=== PATIENT | female | born 2000 | race Two or more races ===

== ENCOUNTER 2025-02-01 13:05 | Outpatient (AMB) | payer MEDICAID, SELFPAY ==
--- NOTE | 2025-02-01 13:22 | OBCLNT_ITS ---
Vital Signs 02/01/25 13:27 Weight 68.096 kg Weight Measurement Method Standing Scale BP 130/81 Blood Pressure Source Automatic Cuff Blood Pressure Location Left Upper Arm Position Sitting Respiration 16 Pulse 90 Pulse Source Monitor Temp 97.2 F Temp Source Oral Pulse Oximetry (%) 98 Oxygen Delivery Method Room Air Allergies/Home Meds Allergies & Medications Allergies No Known Allergies Allergy (Verified 02/01/25 13:28) Medication Reconciliation vitamin-ferrous fumarate 28 mg iron-folic acid 800 mcg tablet ( Vitamins with Minerals) 1 tab PO QDAY 10/01/21 [History Confirmed 02/01/25] ursodiol 300 mg capsule 300 mg PO BID 10/01/21 [History Confirmed 02/01/25] vits no.130-ferrous fum 27 mg iron-folic acid 800 mcg tablet ( Vitamin) 1 tab PO QDAY pregancy #60 tabs 02/01/25 [Rx] Intake Visit Data Collection New Patient or Established: New Patient (never been to [facility]) Reason for Visit:: OBI Seen by Clinical Staff ONLY (RN/MA): No Nuclear Control Room Operator Required: No Do You Feel Safe at Home: Yes Authorities Contacted: N/A PCP or OBGYN visit in last 3 months: Yes Hx Now: Yes Are you currently on any form of Control: No Last menstrual period: 10/04/24 Pain Present Currently: No Pain Scale Used: Jara-Nunn/Numerical Pain scale:: 0 Smoking Status Smoking Status: Never smoker Questionnaires Covid-19 Vaccine Questionnaire Has patient been vacinated for Covid-19 Have you been vacinated for Covid-19: Yes PHQ-9 PHQ-2 Over the last 2 weeks, how often have you been bothered by any of the following problems? 1. Little interest or pleasure in doing things: not at all 2. Feeling down, depressed, or hopeless: not at all Total score: 0 PHQ-9 3. Trouble falling or staying asleep, or sleeping too much: Not at all 4. Feeling tired or having little energy: Not at all 5. Poor appetite or overeating: Not at all 6. Feeling bad about yourself - or that you are a failure or have let yourself or your family down: Not at all 7. Trouble concentrating on things, such as reading the newspaper or watching television: Not at all 8. Moving or speaking so slowly that other people could have noticed? - Or the opposite - being so fidgety or restless that you have been moving around a lot more than usual: not at all 9. Thoughts that you would be better off or of hurting yourself in some way: Not at all Total score: 0 If you checked off any problems, how difficult have these problems made it for you to do your work, take care of things at home, or get along with other people?: not difficult at all Source: Developed by Drs. Sourav Haynes, Maria Guadalupe Taylor, Kwaku Toscano and colleagues, with an educational vashti from [employer]. Depression screen completed yes Social History Living Situation History Marital Status: Lives With: Family Housing: TRAILER Tobacco History Smoking Status: Never smoker Second Hand Smoke Exposure: No Alcohol History Alcohol Intake: Never Domestic Abuse History Do You Feel Safe at Home: Yes History of Present Illness HPI Narrative 24-year-old 2 para 1 for OBI. Patient's last period October 04, 2024. This gives EDC July 11, 2025. Patient has a little girl that weighed 6 pounds 5 it was a vaginal and uncomplicated the first . Denies social habits. Denies surgery. Denies chronic illness. Patient has no allergies. Sh e reports light movement. And she denies leaking, bleeding, cramps. No complaints so far with this . GASOLINE ATTENDANT: Past Medical History Past Medical History: No Hx Neurological Disorders, No Hx Cardiac Disorders, No Hx Cancer, No Hx Blood Disorders, No Hx Gastrointestinal Disorders, No Hx Renal Disease, No Hx Diabetes Mellitus Type 1 and No Hx Diabetes Mellitus Type 2 OB Initial Visit OB Flowsheet OB Flowsheet Initial Weight: Not Recorded Date -?-?-?-?-?-?-?-?-?-?-?-?- EGA Weight BP Alb Glu CTX Pres Fundal ht FHR Mov Dilation Station Effacement Hx Notes Visit Note 02/01/25 -?-?-?-?-?-?-?-?-?-?-?-?- 17w 1d 68.096 kg 130/81 absent unknown 17 145 active This is a 24-year-old 2 para 1 for OBI. Patient's last period October 04, 2024. This gives a due date of July 11, 2025. Patient feels light movement. She reports that she has not had any problems with . And she had her confirmed at [facility] AFP, NIPT, carrier screens and OB panel today. Patient was scheduled appointment with maternal- medicine/Dr. Andrade for anatomy scan. Discussed SAB precautions. Increase fluids. And prescription for vitamins was given. Menstrual History Menstrual reliability: definite Flow: normal Menstrual regularity: regular Monthly: Yes Age at menarche: 16 On control pills at conception: No OB History : 2 Para: 1 Hx # Pregnancies: 0 Hx Total # of Abortions (Spontaneous & Elective): 0 # of Living Children: 1 Delivery History 1st : Child's name: NOT PROVIDED date: 10/02/21 sex: female Delivery type: vaginal weight (lbs): 6000 g weight (oz): 5000 g History of depression before or after : No Infection History & Risk Evaluation History of STDs: none HIV risk evaluation: low risk Hepatitis B risk evaluation: low risk Patient or partner has history of Genital Herpes: No Varicella/chicken pox status: immunized Genetic Screening & History Genetic Screening/Teratology Counseling - Includes patient, baby's father, or anyone in either family with: 1. Patient's age 35 years or older as of estimated date of delivery: No 2. Thalassemia (Danish, Maltese, Mediterranean, or Background); MCV less than 80: No 3. Neural Tube Defect (Meningomyelocele, Spina Bifida, or Anencephaly): No 4. Congenital Heart Defect: No 5. Down Syndrome: No 6. Wild-Sachs (Ashkenazi Sikhism, Cajun, Occitan Georgian): No 7. Jasmina Disease (Ashkenazi Sikhism): No 8. Familial Dysautonomia (Ashkenazi Sikhism): No 9. Sickle Cell Disease or Trait (): No 10. Hemophilia or other blood disorders: No 11. Muscular Dystrophy: No 12. Cystic Fibrosis: No 13. Alleghany's Chorea: No 14. Mental Retardation/Autism: No 15. Other inherited genetic or chromosomal disorder: No 16. Maternal Metabolic Disorder (EG,TYPE 1 Diabetes, PKU): No 17. Patient or baby's father had a child with defects not listed above: No 18. Recurrent loss or a stillbirth: No 19. Medications (including supplements, vitamins, herbs or otc d rugs)/illicit/recreational drugs/alcohol since last menstrual period: No 20. Any other: No Infection History 1. Live with someone with TB or exposed to TB: No 2. Rash or viral illness since last menstrual period: No 3. Hepatitis B,C: No Other (see comments) Source: [employer] Review of Systems Review of Systems Systems Reviewed: All systems reviewed, normal except as documented Exam General Limitations: no limitations General Appearance: alert, in no apparent distress, comfortable, cooperative, healthy appearing, well developed and well groomed Head Head exam: atraumatic, normocephalic and normal inspection Chest Chest inspection: Present normal inspection and symmetric chest wall rise Resp Respiratory exam: Present normal lung sounds bilaterally Card Cardiovascular exam: Present regular rate, normal rhythm and normal heart sounds Abdominal Abdominal exam: Present soft and normal bowel sounds Psych Psychiatric exam: Present normal affect and normal mood Office Procedures OB Clinic LOC & Office Proc's Nursing/Assessment Patient Status: Initial/New Patient OB Clinic Nursing Assessment: Medication Reconciliation, Update PMH in EMR and Vital Signs OB Clinic Coordination of Care: Education Complex Pt/Fam, Consent,records obtained, informed consent, Lab and Imaging orders, Results/Orders obtained and Staff clarify orders Special Needs: Heart tones and Language special needs New Patient Charge New Patient Point Assignment: 1114 New Patient 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 verification given. Schedule with Dr. Andrade for maternal- medicine anatomy scan. OB panel today with AFP, NIPT and carrier screen. Hemoglobin A1c. Discussed SAB precautions. Increase fluids and return in 4 weeks OB check Additional Plan Follow Up: 4 Weeks (obc)
[2025-02-01 13:27] VITALS: BP 130/81; PULSE 90; RESP 16; TEMP 36.2; O2SAT 98
== END 2025-02-01 13:56 | disposition home or self-care (01) ==
LOC: HODSOBC 13:05
PROVIDERS: Supervising Provider Advanced Practice Midwife; Visit Provider Advanced Practice Midwife
DX: O09.92 Supervision of high risk pregnancy, unspecified, second trimester (principal); Z3A.17 17 weeks gestation of pregnancy
CPT/HCPCS: 99203; G0463

== ENCOUNTER 2025-04-06 09:51 | Outpatient (AMB) | payer MEDICAID, SELFPAY ==
[2025-04-06 10:18] VITALS: BP 119/68; PULSE 71; RESP 14; TEMP 36.1; O2SAT 98
--- NOTE | 2025-04-06 10:18 | OBCLNT_ITS ---
Vital Signs 04/06/25 10:18 Height 5 m Height Method Stated Weight 69.173 kg Weight Measurement Method Standing Scale BMI 2.7 BP 119/68 Blood Pressure Source Automatic Cuff Blood Pressure Location Left Upper Arm Position Sitting Respiration 14 Pulse 71 Pulse Source Monitor Temp 96.9 F Temp Source Oral Pulse Oximetry (%) 98 Oxygen Delivery Method Room Air Allergies/Home Meds Allergies & Medications Allergies No Known Allergies Allergy (Verified 04/06/25 10:22) Medication Reconciliation vitamin-ferrous fumarate 28 mg iron-folic acid 800 mcg tablet ( Vitamins with Minerals) 1 tab PO QDAY 10/01/21 [History Confirmed 04/06/25] vits no.130-ferrous fum 27 mg iron-folic acid 800 mcg tablet ( Vitamin) 1 tab PO QDAY pregancy #60 tabs 02/01/25 [Rx Confirmed 04/06/25] Immunizations Immunizations Flu Vaccine in the Last 12 Months: Yes Date of most recent flu vaccination: 04/06/25 Flu Vaccine Exclusion Criteria: Already Received Care OB Visit Log OB Flowsheet Initial Weight: Not Recorded Date -?-?-?-?-?-?-?-?-?-?-?-?- EGA Weight BP Alb Glu CTX Pres Fundal ht FHR Mov Dilation Station Effacement Hx Notes Visit Note 02/01/25 -?-?-?-?-?-?-?-?-?-?-?-?- 17w 1d 68.096 kg 130/81 absent unknown 17 145 active This is a 24-year-old 2 para 1 for OBI. Patient's last period October 04, 2024. This gives a due date of July 11, 2025. Patient feels light movement. She reports that she has not had any problems with . And she had her confirmed at [facility] AFP, NIPT, carrier screens and OB panel today. Patient was scheduled appointment with maternal- medicine/Dr. Andrade for anatomy scan. Discussed SAB precautions. Increase fluids. And prescription for vitamins was given. 04/06/25 -?-?-?-?-?-?-?-?-?-?-?-?- 26w 2d 69.173 kg 119/68 absent unknown 26 145 active Reports movement. Denies labor complaints such as bleeding, leaking, contractions. Patient has MFM appointment scheduled May 05. Keep appointment May 05 with maternal- medicine doctor, Dr. Andrade. Discussed OB panel labs. Schedule third trimester labs. Discussed labor precautions and return in 3 weeks OB check PRECIOUS Calculator Estimated Delivery Date Method Current WG Current Estimate 07/11/25 LMP (Certain) 26w 2d Notes Visit Date: 04/06/25 Last Updated by: Katarina Gay CNM OB panel: UT-, UA-, O+,abs-, rpr;;nr, rub NI, HBSAG-,HIV-,HC-, A1c: 4.9, NIPT/SMA,CF-/boy Visit Date: 02/01/25 Last Updated by: Katarina Gay CNM 24 yo . LMP 10/04/24. EDC: 07/11/25 Office Procedures OBC Clinic LOC & Office Proc's Nursing/Assessment Patient Status: Established Patient OB Clinic Nursing Assessment: Medication Reconciliation, Update PMH in EMR and Vital Signs OB Clinic Coordination of Care: Complex Care and Chronic Disease 1-5, Consent,records obtained, informed consent, Education Simp Pt/Fam, 1 Ins Authorization, Lab and Imaging orders, Results/Orders obtained and Staff clarify orders Special Needs: Heart tones Established Patient Charge Established Patient Point Assignment: 150 Established Patient Point Charge: EP Level 4 (120-155) Injection/Vaccine Admin SQ Im Injection: Yes Immunizations flu vac ts (6mos up)-PF 45 mcg(15mcg x3)/0.5 mL IM syringe Performing Provider: Katarina Gay CNM Performing Location: [facility] Clinic Administered by: Mahsa Cruz MA on 04/06/25 11:20 Dose Route Admin Location Dispensed Lot Number Expiration Date Pack age [facility] Civil Attorney 0.5 mL IM Left Deltoid 0.5 mL [id number] 11/16/25 [id number] [employer] VIS Given Date VIS Provided VIS Publication Date 04/06/25 Single Vaccine 24 Eligibility Eligibility Date Funding Source Public Non-[facility] Assessment & Plan Diagnosis / Problem List (1) Encounter for supervision of high risk in second trimester, antepartum: Status: Acute Plan Patient has appointment May [address] Lupe for OB sono. Discussed OB panel labs and NIPT and carrier scan. Schedule third trimester labs. Return in 3 weeks OB check. Discussed labor precautions Additional Plan Follow Up: 4 Weeks (obc)
== END 2025-04-06 10:44 | disposition home or self-care (01) ==
LOC: HODSOBC 09:51
PROVIDERS: Supervising Provider Advanced Practice Midwife; Visit Provider Advanced Practice Midwife
DX: O09.92 Supervision of high risk pregnancy, unspecified, second trimester (principal); Z3A.26 26 weeks gestation of pregnancy; Z23 Encounter for immunization
CPT/HCPCS: 90471; 90686; 96372; 99214; G0463; J9060

== ENCOUNTER 2025-05-04 10:29 | Outpatient (AMB) | payer MEDICAID, SELFPAY ==
--- NOTE | 2025-05-04 10:45 | AMB.OBPNC ---
Vital Signs 05/04/25 10:46 Height 1.55 m Height Method Stated Weight 69.4 kg Weight Measurement Method Standing Scale BMI 28.9 BP 120/79 Blood Pressure Source Automatic Cuff Blood Pressure Location Left Upper Arm Position Sitting Respiration 16 Pulse 82 Pulse Source Monitor Temp 97.3 F Temp Source Oral Pulse Oximetry (%) 97 Oxygen Delivery Method Room Air Allergies/Home Meds Allergies & Medications Allergies No Known Allergies Allergy (Verified 05/04/25 10:51) Medication Reconciliation vitamin-ferrous fumarate 28 mg iron-folic acid 800 mcg tablet ( Vitamins with Minerals) 1 tab PO QDAY 10/01/21 [History Confirmed 05/04/25] vits no.130-ferrous fum 27 mg iron-folic acid 800 mcg tablet ( Vitamin) 1 tab PO QDAY pregancy #60 tabs 02/01/25 [Rx Confirmed 05/04/25] Immunizations Immunizations Flu Vaccine in the Last 12 Months: Yes Flu Vaccine Exclusion Criteria: Already Received Care OB Visit Log OB Flowsheet Initial Weight: Not Recorded Date <del>?</del> EGA Weight BP Alb Glu CTX Pres Fundal ht FHR Mov Dilation Station Effacement Hx Notes Visit Note 02/01/25 <del>?</del> 17w 1d 68.096 kg 130/81 absent unknown 17 145 active This is a 24-year-old 2 para 1 for OBI. Patient's last period October 04, 2024. This gives a due date of July 11, 2025. Patient feels light movement. She reports that she has not had any problems with . And she had her confirmed at [facility] AFP, NIPT, carrier screens and OB panel today. Patient was scheduled appointment with maternal- medicine/Dr. Andrade for anatomy scan. Discussed SAB precautions. Increase fluids. And prescription for vitamins was given. 04/06/25 <del>?</del> 26w 2d 69.173 kg 119/68 absent unknown 26 145 active Reports movement. Denies labor complaints such as bleeding, leaking, contractions. Patient has MFM appointment scheduled May 05. Keep appointment May 05 with maternal- medicine doctor, Dr. Andrade. Discussed OB panel labs. Schedule third trimester labs. Discussed labor precautions and return in 3 weeks OB check 05/04/25 <del>?</del> 30w 2d 69.4 kg 120/79 absent unknown 30 145 active MFM appointment 1217. Reports good movement. Movement was palpated well our visit. Denies leaking bleeding or contractions Tdap today. Discussed labor precautions. Keep appointment for ultrasound tomorrow. Return in 2 weeks for recheck PRECIOUS Calculator Estimated Delivery Date Method Current WG Current Estimate 07/11/25 LMP (Certain) 30w 2d Notes Visit Date: 05/04/25 Last Updated by: Katarina Gay CNM 3rd tri lab [id number] flu/tdap Visit Date: 04/06/25 Last Updated by: Katarina Gay CNM OB panel: UT-, UA-, O+,abs-, rpr;;nr, rub NI, HBSAG-,HIV-,HC-, A1c: 4.9, NIPT/SMA,CF-/boy Visit Date: 02/01/25 Last Updated by: Katarina Gay CNM 24 yo . LMP 10/04/24. EDC: 07/11/25 Office Procedures OBC Clinic LOC & Office Proc's Nursing/Assessment Patient Status: Established Patient OB Clinic Nursing Assessment: Medication Reconciliation, Update PMH in EMR and Vital Signs OB Clinic Coordination of Care: Complex Care and Chronic Disease 1-5, Consent,records obtained, informed consent, Education Simp Pt/Fam, 1 Ins Authorization, Lab and Imaging orders, Results/Orders obtained and Staff clarify orders Special Needs: Heart tones Established Patient Charge Established Patient Point Assignment: 150 Injection/Vaccine Admin Admin 1st Vaccine: Yes Immunizations diphth,pertus(acell),tetanus 2.5 Lf unit-8 mcg-5 Lf/0.5mL IM syringe Performing Provider: Katarina Gay CNM Performing Location: [facility] Clinic Administered by: Mahsa Cruz MA on 05/04/25 11:09 Dose Route Admin Location Dispensed Lot Number Expiration Date Package [facility] Endband Cutter Hand 0.5 mL IM Left Deltoid 0.5 mL [id number] 08/14/27 [id number] Referral.IM VIS Given Date VIS Provided VIS Publication Date 05/04/25 Single Vaccine 24 Eligibility Eligibility Date Funding Source [facility] Non[facility] Assessment & Plan Diagnosis / Problem List (1) Encounter for supervision of high risk in third trimester, antepartum: Status: Acute Plan Tdap today. Discussed labor precautions. Kick count twice a day. Keep appointment with MFM tomorrow. Return in 2 weeks OB check Additional Plan Follow Up: 2 Weeks (obc)
[2025-05-04 10:46] VITALS: BP 120/79; PULSE 82; RESP 16; TEMP 36.3; O2SAT 97; BMI 28.9
== END 2025-05-04 11:21 | disposition home or self-care (01) ==
LOC: HODSOBC 10:29
PROVIDERS: Supervising Provider Advanced Practice Midwife; Visit Provider Advanced Practice Midwife
DX: O09.93 Supervision of high risk pregnancy, unspecified, third trimester (principal); Z3A.30 30 weeks gestation of pregnancy; Z23 Encounter for immunization
CPT/HCPCS: 90471; 90715; 99213; G0463